=== PATIENT | male | born 1960 | race Caucasian/White ===

== ENCOUNTER 2017-11-07 20:00 | Emergency (ER) | payer OTHER ==
[~2017-11-07] VITALS: Ht 188 cm; Wt 145.2 kg
[2017-11-07] MEDS ORDERED: HUMULIN R100 UNIT/M (20:12)
[2017-11-07] MEDS ORDERED: HUMULIN N100 UNIT/1 (20:12)
[2017-11-07] MEDS ORDERED: TRAMADOL 50 MG50 MG (20:12)
[2017-11-07 20:21] LABS: URINE BILIRUBIN NEGATIVE (Negative); URINE BLOOD NEGATIVE (Negative); URINE CLARITY CLEAR; URINE COLOR YELLOW; URINE GLUCOSE-RANDOM 3+ (Negative); URINE KETONES 2+ (Negative); URINE LEUKOCYTES-REFLEX NEGATIVE (Negative); URINE NITRITE-REFLEX NEGATIVE (Negative); URINE PROTEIN NEGATIVE (Negative); URINE UROBILINOGEN 0.2 E.U./dl (0.2-1.0)
[2017-11-07 20:26] LABS: ABSOLUTE EOSINOPHILS 0.1 thou/uL (0.0-0.7); ABSOLUTE LYMPHOCYTES 1.1 thou/uL (0.8-5.3); ABSOLUTE MONOCYTES 0.5 thou/uL (0.0-1.2); ABSOLUTE NEUTROPHILS 4.7 thou/uL (1.6-8.1); BASOPHILS 0.5 %; EOSINOPHILS 0.9 %; HEMATOCRIT 48.1 % (42.0-52.0); LYMPHOCYTES 17.6 %; MCH 31.2 pg (26.0-34.0); MCHC 33.3 g/dL (28.0-37.0); MCV 93.8 fL (80.0-100.0); MONOCYTES 8.3 %; MPV 8.3 fl. (7.2-11.1); NUCLEATED RBCS 0 /100WBC; POLYS 72.7 %; RBC 5.12 mil/uL (4.50-6.00); WBC 6.4 thou/uL (4.0-11.0)
[2017-11-07 20:31] LABS: INR 0.9; PROTIME 9.2 Seconds (9.20-11.50)
[2017-11-07 20:32] LABS: ANION GAP 7 mmol/L (7-16); BUN 20 mg/dL (7-18); CALCIUM 9.1 mg/dL (8.5-10.1); CHLORIDE 96 mmol/L (98-107); CO2 28 mmol/L (21-32); GLUCOSE 482 mg/dL (70-99); POTASSIUM 4.6 mmol/L (3.5-5.1); SODIUM 131 mmol/L (136-145)
[2017-11-07 20:43] LABS: ALBUMIN 3.6 g/dL (3.4-5.0); ALKALINE PHOSPHATASE 176 U/L (46-116); LIPASE 66 U/L (73-393); NT-PRO BRAIN NAT PEPTIDE 23 pg/mL (<300); SGOT 31 U/L (15-37); SGPT 46 U/L (30-65); TOTAL BILIRUBIN 0.6 mg/dL (<0.1-1.0); TOTAL PROTEIN 7.7 g/dL (6.4-8.2); TROPONIN-I LEVEL <0.06 ng/mL (<0.06)
[2017-11-07 21:09] LABS: PLATELET COUNT* 277 thou/uL (150-400)
[2017-11-07 21:36] LABS: AMP/METHAMP Negative (Negative); BARBITURATES Negative (Negative); BENZODIAZEPINES Negative (Negative); COCAINE Negative (Negative); METHADONE Negative (Negative); OPIATES Negative (Negative); PCP Negative (Negative); THC Negative (Negative)
[2017-11-08 00:12] VITALS: BP 129/76
--- NOTE | 2017-11-08 10:55 | EKG ---
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 : 1960 Requested By: Maria Luisa Patel Order Number: [id number] MD: Moo Damon Measurements Intervals [place] Rate: 93 P: 46 [place]: 165 QRS: -75 QRSD: 89 T: 34 QT: 341 QTc: 425 Interpretive Statements Sinus rhythm Abnormal R-wave progression, late transition Inferior infarct, old No previous ECG available for comparison Electronically Signed On 11-08-2017 10:55:04 CDT by Moo Damon [email or web address] <ELECTRONICALLY SIGNED> By: Moo Damon MD, [facility] 11/08/17 1055 2019 18 Moo Damon MD, FACC /EPI
== END 2017-11-08 00:14 | disposition home or self-care (01) ==
LOC: M.ERS 20:00
PROVIDERS: Emergency Medicine
DX: E11.65 Type 2 diabetes mellitus with hyperglycemia (principal); R10.32 Left lower quadrant pain; R11.2 Nausea with vomiting, unspecified; Z88.1 Allergy status to other antibiotic agents; Z88.6 Allergy status to analgesic agent; Z88.8 Allergy status to other drugs, medicaments and biological substances; Z85.038 Personal history of other malignant neoplasm of large intestine; Z79.899 Other long term (current) drug therapy; Z79.4 Long term (current) use of insulin